=== PATIENT | female | born 1985 ===

== ENCOUNTER 2022-03-31 13:07 | Outpatient (CLI) | payer SELFPAY ==
[2022-03-31 13:48] VITALS: BP 107/62
[2022-03-31] MEDS ORDERED: LACTATED RINGERS 1,000 ML ONE (14:26)
[2022-03-31] MEDS ORDERED: LACTATED RINGERS 1,000 ML IV ONE (14:32)
[2022-03-31] MEDS ORDERED: MORPHINE 2 MG/1 ML INJ IM ONE (14:32)
[2022-03-31 14:46] LABS: Bacteria,Urine 1+ /HPF (Negative); Bilirubin,Urine NEG (Negative); Blood,Urine MOD (Negative); Color,Urine Yellow (Yellow); Mucus,Urine FEW /HPF; Protein,Urine <15 mg/dL mg/dL (Negative); Urobilinogen,Urine < 2.0 mg/dL (<2.0)
[2022-03-31 15:40] LABS: Hematocrit 29.1 % (30.3-42.9); Mean Corpuscular HGB Conc 31 % (30-34); Mean Corpuscular Volume 64 fl (79-97); Red Blood Count 4.53 M/mm3 (3.65-5.03)
[2022-03-31 15:41] LABS: Platelet Count 227 K/mm3 (140-440); Red Cell Distribution Width 22.1 % (13.2-15.2)
--- NOTE | 2022-03-31 16:08 | Event Note ---
Date: 03/31/22 Labor check no PNC Previous c/sectionx2 38 weeks ABD: soft cervix closed, refuses repeat cervical exam DC home, advised to contract Cenral delivery for maternal/ indication
--- NOTE | 2022-03-31 16:17 | Ultrasound Report ---
Limited OB Ultrasound Biophysical profile ultrasound HISTORY: BPP/MICKEY/EFW. TECHNIQUE: Grayscale and color imaging performed. COMPARISON: None FINDINGS: There is a single viable intrauterine gestation with cephalic presentation. MICKEY is 15 cm. Placenta is left lateral. heart rate is 124 bpm. Overall EGA is 38 weeks and 0 days with estimated deliver y date of 04/14/2022. Estimated weight is 3679 g which is the 86th percentile. On biophysical profile, the fetus received a score of 2 out of 2 for breathing, movement, posture/ton e, and MICKEY. Total score was 8 out of 8. IMPRESSION: 1. Single viable intrauterine gestation as above. 2. Normal biophysical profile. Signer Name: Jose David Antoine MD Signed: 03/31/2022 4:12 PM Workstation Name: [facility]
== END 2022-03-31 16:30 | disposition home or self-care (01) ==
LOC: TRG 13:07 → APU 13:08 → TRG 16:30
PROVIDERS: ATTEND Obstetrics & Gynecology
DX: O62.9 Abnormality of forces of labor, unspecified (principal); Z3A.38 38 weeks gestation of pregnancy
CPT/HCPCS: 36415; 59025; 76816; 76819; 81001; 85027; 86850; 86900; 86901; 96360; 96372; J2270; J7120

== ENCOUNTER 2022-04-07 09:16 | Inpatient (IN) | payer SELFPAY ==
[2022-04-07] MEDS ORDERED: LACTATED RINGERS 1,000 ML IV SCH ×2 (11:30→17:45)
[2022-04-07 11:59] LABS: Basophils % (Auto) 0.6 % (0.0-1.8); Eosinophils % (Auto) 0.5 % (0.0-4.3); Hematocrit 26.3 % (30.3-42.9); Hemoglobin 8.2 gm/dl (10.1-14.3); Lymphocytes # (Auto) 1.3 K/mm3 (1.2-5.4); Lymphocytes % (Auto) 23.2 % (13.4-35.0); Mean Corpuscular HGB Conc 31 % (30-34); Monocytes # (Auto) 0.5 K/mm3 (0.0-0.8); Monocytes % (Auto) 8.3 % (0.0-7.3); Red Blood Count 4.19 M/mm3 (3.65-5.03)
[2022-04-07] MEDS ORDERED: ceFAZolin/Water 2 GM/20 ML 2 GM/20 ML SYRINGE IV NR (12:00)
[2022-04-07] MEDS ORDERED: OXYTOCIN DRIP 30 UNITS/500 ML BAG IV SCH ×3 (12:00→21:00)
[2022-04-07 12:05] LABS: Mean Corpuscular Volume 63 fl (79-97); Red Cell Distribution Width 22.4 % (13.2-15.2)
[2022-04-07 12:42] LABS: Platelet Count 194 K/mm3 (140-440)
[2022-04-07] MEDS ORDERED: BICITRA ORAL LIQD 30ML PO SCH (13:00)
[2022-04-07] MEDS ORDERED: FAMOTIDINE 20 MG/2 ML INJ IV SCH (13:00)
[2022-04-07] MEDS ORDERED: METOCLOPRAMIDE 10 MG/2 ML INJ IV SCH (13:00)
[2022-04-07] MEDS ORDERED: BUPIVACAINE/PF (0.5%) 5 MG/1 ML 30 ML VIAL INFILTRATI ONE (15:40)
[2022-04-07] MEDS ORDERED: BUPIVACAINE/PF (0.25%) 2.5 MG/ML 30 ML VIAL INFILTRATI ONE (15:40)
--- NOTE | 2022-04-07 15:49 | Anesthesia Day of Surgery ---
Anesthesia Day of Surgery - Day of Surgery Patient Examined: Yes Patient H&P Reviewed: Yes Patient is NPO: Yes
--- NOTE | 2022-04-07 15:49 | Anesthesia Consultation ---
Anesthesia Consult and Med Hx Date of service: 04/07/22 - Airway Anesthetic Teeth Evaluation: Good ROM Head & Neck: Adequate Mental/Hyoid Distance: Adequate Mallampati Class: Class II Intubation Access Assessment: Good - Pulmonary Exam CTA: Yes - Cardiac Exam Cardiac Exam: RRR - Pre-Operative Health Status ASA Pre-Surgery Classification: ASA2 Proposed Anesthetic Plan: Epidural - Pulmonary Hx Asthma: No - Cardiovascular System Hx Hypertension: No - Central Nervous System Hx Seizures: No Hx Psychiatric Problems: No - Endocrine Hx Renal Disease: No Hx Hypothyroidism: No Hx Hyperthyroidism: No - Hematic Hx Anemia: No Hx Sickle Cell Disease: No - Other Systems Hx Alcohol Use: No
[2022-04-07] MEDS ORDERED: HYDROmorphone 1 MG/1 ML INJ IV PRN (16:00)
[2022-04-07] MEDS ORDERED: ONDANSETRON 4 MG/2 ML INJ IV PRN ×2 (16:00→17:40)
[2022-04-07] MEDS ORDERED: NALOXONE 0.4 MG/1 ML INJ IV PRN ×3 (16:00→20:50)
[2022-04-07] MEDS ORDERED: PROMETHAZINE 25 MG RECT SUPP PR PRN (16:00)
[2022-04-07] MEDS ORDERED: PROMETHAZINE 25 MG TAB PO PRN ×2 (16:00→17:40)
[2022-04-07] MEDS ORDERED: GENTAMICIN/NS 80 MG/100 ML 100 ML IV SCH (16:00)
--- NOTE | 2022-04-07 16:09 | History and Physical Report ---
History of Present Illness Date of examination: 04/07/22 History of present illness: at 39.0wks by LMP c/w U/S and records (limited care with first trimester u/s dating). Pt here with c/o painful contractions, denies LOF or vag bleed or headache. records show that pt had blood transf usion in 2019 with her last delivery. labs with blood type AB positive, neg screen, RPR non-reactive, Abormal 1hr gtt with normal 3hrgtt; rubella immune, HepBsAg neg, HIV negative. Past History Past Medical History: no pertinent history Past Surgical History: cholecystectomy, section (x2), other (Breast cystectomy) Social history: no significant social history - Obstetrical History Expected Date of Delivery: 04/14/22 Actual Gestation: 39 Week(s) 0 Day(s) : 3 Para: 2 Number of Living Children: 2 Medications and Allergies Allergies Allergy/AdvReac Type Severity Reaction Status Date / Time Penicillins AdvReac Severe Rash Verified 03/31/22 13:50 Active Meds: Active Medications Citric Acid/Sodium Citrate (Bicitra Oral Liqd 30ml) 30 ml PO ONCE@1300 AUGUSTINE Stop: 04/07/22 18:00 Famotidine (Famotidine 20 Mg/2 Ml Inj) 20 mg IV PREOP AUGUSTINE Stop: 04/07/22 18:00 Hydromorphone HCl (Hydromorphone 1 Mg/1 Ml Inj) 0.5 mg IV Q5M PRN PRN Reason: BREAK Lactated Ringer's (Lactated Ringers) 1,000 mls @ 2,250 mls/hr IV PREOP AUGUSTINE Stop: 04/08/22 11:57 Oxytocin/Sodium Chloride (Pitocin/Ns 30 Unit/500ml) 30 units in 500 mls @ 0 mls/hr IV TITR AUGUSTINE; Protocol Cefazolin Sodium (Ancef/Sterile Water 2 Gm/20 Ml) 2 gm in 20 mls @ 80 mls/hr IV PREOP NR; Protocol Stop: 04/07/22 18:00 Metoclopramide HCl (Metoclopramide 10 Mg/2 Ml Inj) 10 mg IV ONCE@1300 AUGUSTINE Stop: 04/07/22 18:00 Naloxone HCl (Naloxone 0.4 Mg/1 Ml Inj) 0.2 mg IV Q2MIN PRN PRN Reason: Res Rate </= 8 or 02 SAT < 92% Ondansetron HCl (Ondansetron 4 Mg/2 Ml Inj) 4 mg IV Q8H PRN PRN Reason: Nausea And Vomiting Promethazine HCl (Promethazine 25 Mg Tab) 25 mg PO Q6H PRN PRN Reason: Nausea And Vomiting Promethazine HCl (Promethazine 25 Mg Rect Supp) 25 mg TX Q6H PRN PRN Reason: Nausea And Vomiting Sodium Chloride (Sodium Chloride 0.9% 10 Ml Flush Syringe) 10 ml IV PRN NR Review of Systems All systems: negative (painful ctx) - Vital Signs Vital signs: Vital Signs Pulse Pulse Ox 108 H 97 04/07/22 09:48 04/07/22 09:48 Temp Pulse Resp BP Pulse Ox 98.7 F 94 H 16 99/63 98 04/07/22 09:50 04/07/22 15:59 04/07/22 09:50 04/07/22 09:50 04/07/22 15:59 - Physical Exam Breasts: Positive: deferred Cardiovascular: Regular rate Lungs: Positive: Normal air movement Abdomen: Positive: soft (non-tender, gravid with anterior wall edema) Genitourinary (Female): Positive: normal external genitalia Uterus: Positive: enlarged - Obstetrical FHR: category 1 Uterine Contraction Monitor Mode: External Cervical Dilatation: 0 (per triage nurse) Uterine Contraction Pattern: Regular Uterine Contraction Intensity: Moderate Results Result Diagrams: 04/07/22 11:45 Abnormal lab results 04/07/22 Range/Units 11:45 Hgb 8.2 L (10.1-14.3) gm/dl Hct 26.3 L (30.3-42.9) % MCV 63 L (79-97) fl MCH 19 L (28-32) pg RDW 22.4 H (13.2-15.2) % [place] % (Auto) 8.3 H (0.0-7.3) % All other labs normal. Assessment and Plan Term preg with previous c/section, mild anemia asymptomatic with painful contractions 1. Admit for repeat section and cross match 2units PRBC 2. Gent/Clinda for preop abx with allergy to PCN 3. Plan of care discussed and pt signed consents 4. Anesthesiologist already notified and NICU informed All questions encouraged and answered
[2022-04-07] MEDS ORDERED: SODIUM CHLORIDE 0.9% 500 ML 500 ML IV NR (16:14)
[2022-04-07] MEDS ORDERED: OXYTOCIN 10 UNIT/1 ML INJ IM PRN (17:40)
[2022-04-07] MEDS ORDERED: LOPERAMIDE 2 MG CAP PO PRN (17:40)
[2022-04-07] MEDS ORDERED: MINERAL OIL 30 ML ORAL LIQD PO PRN (17:40)
[2022-04-07] MEDS ORDERED: METHYLERGONOVINE MALEATE 0.2 MG/ML VIAL IM PRN (17:40)
[2022-04-07] MEDS ORDERED: ACETAMINOPHEN 325 MG TAB PO PRN ×2 (17:40→20:50)
[2022-04-07] MEDS ORDERED: ePHEDrine SULFATE 50 MG/1 ML INJ IV PRN (17:40)
[2022-04-07] MEDS ORDERED: miSOPROStol 200 MCG TAB PR PRN (17:40)
[2022-04-07] MEDS ORDERED: fentaNYL 100 MCG/2 ML INJ IV PRN (17:40)
[2022-04-07] MEDS ORDERED: BUTORPHANOL 2 MG/1 ML INJ IV PRN (17:40)
[2022-04-07] MEDS ORDERED: TERBUTALINE 1 MG/1 ML INJ SUB-Q PRN (17:40)
[2022-04-07] MEDS ORDERED: MORPHINE 2 MG/1 ML INJ ONE (18:16)
[2022-04-07] MEDS ORDERED: KETOROLAC 30 MG/1 ML INJ ONE (18:16)
--- NOTE | 2022-04-07 18:52 | Procedure Note ---
OB Delivery Note - Delivery Date of Delivery: 04/07/22 Surgeon: CHERRI MARISCAL Estimated blood loss: other (318cc) - Section Preop diagnosis: repeat (h/o c/section x2 and hemorrhage with last delivery with transfusion x2PRBC), other (Anemia) Postop diagnosis: same (and intraabdominal adhesions) section procedure: repeat low transverse (and lysis of adhesions) Disposition: floor Complications: none Narrative: Date: 04/27/22 Surgeon: Cherri Mariscal MD Preop Dx: IUP at 39.0wks with limited care, previous c/section x2 and last c/section with PPH and blood transfusion [id number] Postop Dx: same and uterine window noted Procedure : repeat low section and lysis of adhesions Anesthesia: regional Intake: 1500cc crystalloids Output: 200cc concentrated urine EBL: 318cc After the risks, benefits and alternatives of procedure discussed, patient sig rosaura consents and was taken to the operating room. Pt was given regional anesthesia. After same was adequate, patient was prepped and draped in the usual sterile fashion. Wolff catheter in place and draining concentrated urine. Pt was given prophylactic antibiotic with gent and clinda per protocol for PCN allergy and time out was done Pfannenstiel skin incision was made and taken sharply thru previous scar and taken sharply to the fascia and the incision extended using electrocautery. Superior edge of the fascia was grasped with claude clamps and the rectus muscle using blunt dissection and also using electrocautery. Lower portion of the fascia also sharply. Rectus muscle in the midline and Peritoneal cavity entered bluntly and extended with good visualization of the bladder. The bladder flap was created sharply using metzenbaum scissors. Lower uterine segment cleared of bladder peritoneum that already had uterine window, then entered transversely and amniotic sac entered using allys clamps. Uterine incision extended using bandage scissors. Infant delivered, bulb suctioned, cord clamped and baby handed to waiting pediatricians. Placenta then delivered completely and uterine cavity cleared of all clots and debri. The uterus was not exteriorized and closed in 2 layers using 0-monocryl suture in a running locked fashion and then an additional layer of imbrication suture. Figure of 8 sutures x3 placed with Excellent hemostasis noted. Surgicel powder placed along he uterine edge and no bladder injury occured. The gutters were cleared of clots and debri and anterior peritoneum, scar tissue and rectus muscle reapproximated using 0-monocryl suture in a continuous fashion. Rectus fascia closed with 0-vicryl suture in a continuous fashion and the subcutaneous tissue copiously irrigated with normal saline and re-approximated using 4-0 monocryl suture subcutaneously. Excellent hemostasis remains. The skin was closed with 4-0 monocryl suture and steristrips placed with pressure dressing. Sponge, lap, instrument and needle counts x2 were normal. Patient tolerated the procedure well and was taken to recovery room stable. Findings: Viable female infant, APGARS 8/9 and weight 3880g. Normal uterus, tubes and ovaries bilaterally. - A at 1 minute: 8 at 5 minutes: 9 Infant Gender: Female (wt 3880g; clear amniotic fluid)
[2022-04-07] MEDS ORDERED: LIDOCAINE (2%) 20 MG/1 ML VIAL 20 ML MDV INFILTRATI ONE (19:00)
--- NOTE | 2022-04-07 19:00 | Progress Note ---
Spinal Anesthesia Block - Spinal Anesthesia Block Start Time: 16:35 Stop Time: 16:40 Performed by:: CHRIS WALKER Procedure: Spinal anesthesia block is being performed for []. H&P, labs have been reviewed. Patient's questions and concerns have been answered. Informed consent has been performed. Timeout has was performed. Patient in sitting position on side of bed. Sterile prep and drape was performed. 3 mL 1% lidocaine skin wheal at L [3]-L [4]. Needle introducer advanced. 24-gauge spinal needle advanced, [+] CSF [-] blood. [] Spinal dose was given. All needles removed. Patient tolerated procedure well.
--- NOTE | 2022-04-07 19:01 | Progress Note ---
Regional Anesthesia Block - Regional Anesthesia Block Start Time: 18:36 Stop Time: 18:46 Performed By:: CHRIS WALKER Procedure: Patient consented for TAP block for post surgical pain management. Patient identified, monitors placed, and time out performed. Mid axillary TAP identified bilaterally via ultrasound. Skin prepped bilaterally with [chlorhexidine] and [20g stimuplex] needle advanced to the TAP. 30ml [Marcaine 0.25% with 25mcg Precedex and Decadron 5mg] injected under ultrasound guidance on the [left] side. 30ml [Marcaine 0.25% with 25mcg Precedex and Decadron 5mg] injected under ultrasound guidance on the [right] side. Negative aspiration every 5mL, Patient tolerated the procedure well. No apparent complications seen.
--- NOTE | 2022-04-07 19:01 | Post Anesthesia Evaluation ---
- Post Anesthesia Evaluation Patient Participated: Yes Airway Patent: Yes Stable Respiratory Function: Yes Nausea/Vomiting: No Temp > 96.8F: Yes Pain Manageable: Yes Adequeate Hydration: Yes Anesthesia Complications: No Block Receding Appropriately: Yes
[2022-04-07] MEDS ORDERED: SENNOSIDES 8.6 MG TAB PO PRN (20:50)
[2022-04-07] MEDS ORDERED: MAGNESIUM HYDROXIDE (MOM) ORAL LIQD UDC PO PRN (20:50)
[2022-04-07] MEDS ORDERED: LANOLIN/ZINC/DIMETHICONE (LANSINOH) 7 GM TP PRN (20:50)
[2022-04-07] MEDS ORDERED: IBUPROFEN 600 MG TAB PO PRN (20:50)
[2022-04-07] MEDS ORDERED: SIMETHICONE 80 MG CHEW TAB PO PRN (20:50)
[2022-04-07] MEDS ORDERED: WITCH HAZEL/ GLYCERIN PAD TP PRN (20:50)
[2022-04-07] MEDS ORDERED: HYDROCORTISONE 25 MG RECTAL SUPP PR PRN (20:50)
[2022-04-07] MEDS ORDERED: GENTAMICIN/NS 120MG/100ML 120 MG/100 ML BAG IV ONE (23:00)
[2022-04-07] MEDS: MORPHINE 4 MG/1 ML INJ IV PRN (23:50)
[2022-04-08] MEDS: oxyCODONE /ACETAMINOPHEN 5-325MG TAB PO PRN ×3 (04:20→23:37)
[2022-04-08 08:07] LABS: Hematocrit 25.9 % (30.3-42.9); Hemoglobin 7.9 gm/dl (10.1-14.3)
[2022-04-08] MEDS: IBUPROFEN 800 MG TAB PO PRN ×2 (08:21→18:15)
[2022-04-08] MEDS ORDERED: FERROUS SULFATE 325 MG TAB PO SCH (10:00)
[2022-04-08] MEDS: PRENATAL VIT27-FE FUMARATE-FOLIC ACID VIT TAB PO SCH (10:55)
[2022-04-08] MEDS: FERROUS SULFATE 325 MG TAB PO SCH ×3 (12:11→19:43)
[2022-04-08] MEDS: MORPHINE 4 MG/1 ML INJ IV PRN (12:58)
--- NOTE | 2022-04-08 15:07 | Progress Note ---
Assessment and Plan POD #1 Repeat C/S and asymptomatic severe anemia 1. Routine post op care 2. Iron supplement, vitamin c and colace prn 3. Consider discharge home tomorrow if pt remains stable. Subjective Date of service: 04/08/22 Principal diagnosis: POD#1 Repeat c/s Interval history: pt has no complaints. Denies chest pain, dizziness, palpitations or tired. Pt is breast feeding. Pt has passed flatus and tolerated a regular diet. Voiding without difficulty. Objective - Constitutional Vitals: Vital Signs - 12hr 04/08/22//04/08/22 04:20 04:45 08:21 Temperature 98.3 F 97.9 F Pulse Rate 52 L 65 Respiratory 18 20 20 Rate Blood Pressure Blood Pressure 100/52 [Left] O2 Sat by Pulse 100 97 Oximetry O2 Sat by Pulse Oximetry [ Anterior Bilateral Throughout] 04/08/22 04/08/22 08:30 11:18 Temperature 97.6 F Pulse Rate 73 Respiratory 18 Rate Blood Pressure 94/54 Blood Pressure [Left] O2 Sat by Pulse 98 Oximetry O2 Sat by Pulse 98 Oximetry [ Anterior Bilateral Throughout] General appearance: Present: no acute distress - Neck Neck: normal ROM - Breasts Breasts: deferred - Cardiovascular Rhythm: regular Extremities: No edema - Gastrointestinal General gastrointestinal: Present: soft, non-tender, normal bowel sounds - Genitourinary Female genitourinary: other (Dressing C/D/I; Fundus 1cm below umbilicus and non- tender) - Neurologic Neurologic: moves all extremities - Psychiatric Psychiatric: cooperative - Labs CBC & Chem 7: 04/08/22 07:22 Labs: Abnormal lab results 04/07/22 04/08/22 Range/Units 11:45 07:22 Hgb 7.9 L (10.1-14.3) gm/dl Hct 25.9 L (30.3-42.9) % Crossmatch See Detail Medications & Allergies - Medications Allergies/Adverse Reactions: Allergies Penicillins Allergy (Severe, Verified 04/08/22 11:54) Rash Home Medications: Home Medications Medication Instructions Recorded Confirmed Last Taken Type No Known Home Medications [No 04/08/22 04/08/22 Unknown History Reported Home Medications] Active Medications: Generic Name Dose Route Start Last Admin Trade Name Freq PRN Reason Stop Dose Admin Acetaminophen 650 mg 04/07/22 20:50 Acetaminophen 325 Mg Tab PO Q4H PRN Fever >100.5/HAN Ascorbic Acid 500 mg 04/08/22 22:00 Ascorbic Acid 500 Mg Tab PO BID [facility] Docusate Sodium 100 mg 04/08/22 22:00 Docusate Sodium 100 Mg Cap PO BID [facility] Ferrous Sulfate 325 mg 04/08/22 12:00 04/08/22 14:19 Ferrous Sulfate 325 Mg Tab PO 325 mg TID AUGUSTINE Administration Hydrocortisone Acetate 25 mg 04/07/22 20:50 Hydrocortisone 25 Mg Rectal Supp SD BID PRN Hemorrhoids Oxytocin/Sodium Chloride 30 units in 500 mls @ 0 mls/hr 04/07/22 12:00 Pitocin/Ns 30 Unit/500ml IV TITR [facility] Protocol As Directed Oxytocin/Sodium Chloride 30 units in 500 mls @ 2 mls/hr 04/07/22 18:00 Pitocin/Ns 30 Unit/500ml IV TITR [facility] Protocol Lactated Ringer's 1,000 mls @ 125 mls/hr 04/07/22 17:45 04/07/22 23:12 Lactated Ringers IV 125 mls/hr DIRECT AUGUSTINE Administration Oxytocin/Sodium Chloride 30 units in 500 mls @ 40 mls/hr 04/07/22 21:00 Pitocin/Ns 30 Unit/500ml IV TITR [facility] Protocol Ibuprofen 600 mg 04/07/22 20:50 Ibuprofen 600 Mg Tab PO Q6H PRN Pain, Mild (1-3) Ibuprofen 800 mg 04/07/22 20:50 04/08/22 08:21 Ibuprofen 800 Mg Tab PO 800 mg Q6H PRN Administration Pain, Moderate (4-6) Loperamide HCl 2 mg 04/07/22 17:40 Loperamide 2 Mg Cap PO ONCE PRN give with Hemabate Magnesium Hydroxide 30 ml 04/07/22 20:50 Magnesium Hydroxide (Mom) Oral Liqd Udc PO QHS PRN Constip Unrelieved By Senna Methylergonovine Maleate 0.2 mg 04/07/22 17:40 Methylergonovine Maleate 0.2 Mg/Ml Vial IM ONCE PRN Uterine Bleeding Mineral Oil 30 ml 04/07/22 17:40 Mineral Oil 30 Ml Oral Liqd PO QHS PRN Constipation Misoprostol 800 mcg 04/07/22 17:40 Misoprostol 200 Mcg Tab SD ONCE PRN Uterine Bleeding Morphine Sulfate 4 mg 04/07/22 20:50 04/07/22 23:50 Morphine 4 Mg/1 Ml Inj IV 4 mg Q4H PRN Administration Pain , Severe (7-10) Multi-Ingredient Ointment 1 applic 04/07/22 20:50 Lanolin/Zinc/Dimethicone (Lansinoh) 7 Gm TP PRN PRN dryness/cracking Multivitamins/Iron/Calcium 1 each 04/08/22 10:00 04/08/22 10:55 [id number] Fumarate-Folic Acid Vit Tab PO 1 each QDAY AUGUSTINE Administration Naloxone HCl 0.1 mg 04/07/22 20:50 Naloxone 0.4 Mg/1 Ml Inj IV Q2MIN PRN Res Rate </= 8 or 02 SAT < 92% Ondansetron HCl 4 mg 04/07/22 17:40 Ondansetron 4 Mg/2 Ml Inj IV Q8H PRN Nausea And Vomiting Oxycodone/Acetaminophen 2 tab 04/07/22 20:50 04/08/22 13:11 Oxycodone /Acetaminophen 5-325mg Tab PO 2 tab Q4H PRN Administration Pain, Moderate (4-6) Oxytocin 10 unit 04/07/22 17:40 Oxytocin 10 Unit/1 Ml Inj IM ONCE PRN Uterine Bleeding Promethazine HCl 25 mg 04/07/22 16:00 Promethazine 25 Mg Tab PO Q6H PRN Nausea And Vomiting Promethazine HCl 25 mg 04/07/22 16:00 Promethazine 25 Mg Rect Supp SD Q6H PRN Nausea And Vomiting Senna 17.2 mg 04/07/22 20:50 Sennosides 8.6 Mg Tab PO QHS PRN Constipation Simethicone 80 mg 04/07/22 20:50 04/08/22 10:55 Simethicone 80 Mg Chew Tab PO 80 mg Q6H PRN Administration Gas pain Sodium Chloride 10 ml 04/07/22 16:00 Sodium Chloride 0.9% 10 Ml Flush Syringe IV PRN PRN flush Sodium Chloride 10 ml 04/07/22 21:00 Sodium Chloride 0.9% 10 Ml Flush Syringe IV 04/08/22 20:59 PRN NR [place]/Glycerin 1 each 04/07/22 20:50 [place]/ Glycerin Pad TP PRN PRN Hemorrhoids/cleansing/soothing
[2022-04-08] MEDS: DOCUSATE SODIUM 100 MG CAP PO SCH (21:39)
[2022-04-08] MEDS: ASCORBIC ACID 500 MG TAB PO SCH (21:39)
[2022-04-09] MEDS: FERROUS SULFATE 325 MG TAB PO SCH (08:16)
--- NOTE | 2022-04-09 08:41 | Progress Note ---
Assessment and Plan A: POD # 2 - stable P: Discharge home today and discharge instructions given Subjective - Subjective Date of service: 04/09/22 Principal diagnosis: POD#2 Repeat c/s Patient reports: appetite normal : doing well Objective - Vital Signs Latest vital signs: Vital Signs Temp Pulse Resp BP Pulse Ox Pulse Ox 04/09/22 05:36 20 04/09/22 01:25 73 20 92/54 99 04/08/22 23:37 20 04/08/22 19:35 98 04/08/22 16:30 98.0 F 75 18 92/52 99 04/08/22 11:18 97.6 F 73 18 94/54 98 Intake and Output 04/08/22 04/09/22 04/09/22 22:59 06:59 14:59 Intake Total 1200 Balance 1200 Intake: Oral 600 Intake, Free Water 600 Other: Total, Intake Amount 240 # Voids Void 1 1 - Exam Breasts: Present: deferred Cardiovascular: Present: Regular rate Lungs: Present: Clear to auscultation Abdomen: Present: soft Uterus: Present: fundal height below umbilicus Deep Tendon Reflex Grade: Normal +2 Incision: Present: dressed
--- NOTE | 2022-04-09 08:43 | Discharge Summary ---
Providers - Providers Date of Admission: 04/07/22 17:49 Date of discharge: 04/09/22 Attending physician: GARETH MARISCAL Primary care physician: GARETH MARISCAL Hospitalization Reason for admission: section Delivery: Procedure: section complications: none Discharge diagnosis: IUP at term delivered baby: female Condition at discharge: Good Disposition: 01 HOME / SELF CARE / HOMELESS Plan - Provider Discharge Summary Activity: no heavy lifting 4 weeks, no strenuous exercise Diet: routine Instructions: routine Additional instructions: [] Smoking cessation referral if applicable(refer to patient education folder for contact #) [] Refer to [facility] Booklet Call your doctor immediately for: * Fever > 100.5 * Heavy vaginal bleeding ( >1 pad per hour) * Severe persistent headache * Shortness of breath * Reddened, hot, painful area to leg or breast * Drainage or odor from incision. * Keep incision clean and dry at all times and follow doctor's instructions regarding bathing/showering - Follow up plan Follow up: GARETH MARISCAL MD [Primary Care Provider] - 14 Days
[2022-04-09] MEDS: PRENATAL VIT27-FE FUMARATE-FOLIC ACID VIT TAB PO SCH (10:45)
[2022-04-09] MEDS: DOCUSATE SODIUM 100 MG CAP PO SCH (10:45)
[2022-04-09] MEDS: ASCORBIC ACID 500 MG TAB PO SCH (10:45)
[2022-04-09] MEDS: IBUPROFEN 800 MG TAB PO PRN (12:12)
[2022-04-09 15:39] VITALS: BP 95/57
== END 2022-04-09 13:45 | disposition home or self-care (01) | DRG 788 ==
LOC: TRG 09:16 → APU 09:20 → TRG 17:49 → APU 17:49 → OB 20:37
PROVIDERS: ADMIT Obstetrics & Gynecology; ATTEND Obstetrics & Gynecology
PROC: 10D00Z1 Extraction of Products of Conception, Low, Open Approach (ICD-10-PCS; principal; 2022-04-07)
DX: O34.211 Maternal care for low transverse scar from previous cesarean delivery (principal); Z90.49 Acquired absence of other specified parts of digestive tract; Z88.0 Allergy status to penicillin; K66.0 Peritoneal adhesions (postprocedural) (postinfection); O99.62 Diseases of the digestive system complicating childbirth; O99.02 Anemia complicating childbirth; Z3A.39 39 weeks gestation of pregnancy; Z37.0 Single live birth
CPT/HCPCS: 36415; 85014; 85018; 85025; 86850; 86900; 86901; 86920; 99211; G0378; J3490; J7121; J7502; G0463; J1885; J2270; J2765; J7120